=== PATIENT | male | born 1960 | race African-American/Black ===

== ENCOUNTER 2019-05-05 19:26 | Emergency (ER) | payer OTHER ==
[~2019-05-05] VITALS: Ht 182.9 cm; Wt 77.1 kg
[2019-05-06 04:32] VITALS: BP 121/77
== END 2019-05-06 03:51 | disposition home or self-care (01) ==
LOC: ER 19:26
DX: S20.211A Contusion of right front wall of thorax, initial encounter (principal); F12.90 Cannabis use, unspecified, uncomplicated; W18.49XA Other slipping, tripping and stumbling without falling, initial encounter; Y93.01 Activity, walking, marching and hiking; Y92.89 Other specified places as the place of occurrence of the external cause; Y99.9 Unspecified external cause status